=== PATIENT | male | born 1950 | race Caucasian/White ===

== ENCOUNTER 2022-02-15 12:15 | Inpatient (IN) | payer OTHER ==
[~2022-02-15] VITALS: Ht 188 cm; Wt 113.4 kg
[2022-02-15 12:30] LABS: Calcium, Ionized (POC) 1.07 mmol/L (1.10-1.46); Chloride (POC) 103 mmol/L (98-108); Creatinine (POC) 1.1 mg/dL (0.8-1.3); Glucose (ISTAT POC) 173 mg/dL (70-99); Hemoglobin (POC) 16.7 g/dL (13.5-17.5); Potassium (POC) 3.5 mmol/L (3.5-5.5); Sodium (POC) 140 mmol/L (135-148); Total CO2 (POC) 20 mmol/L (21-32)
[2022-02-15 12:38] LABS: BASOPHILS ABSOLUTE AUTO 0.07 K/mm3 (0.00-0.23); BASOPHILS PERCENT AUTO 1 % (0-2); EOSINOPHILS ABSOLUTE AUTO 0.04 K/mm3 (0.00-0.68); EOSINOPHILS PERCENT AUTO 0 % (0-6); Hematocrit 47.6 % (37.0-53.0); Hemoglobin 15.7 g/dL (13.5-17.5); IMMATURE GRAN ABSOLUTE AUTO 0.07 K/mm3 (0.00-0.10); IMMATURE GRAN PERCENT AUTO 1 % (0-1); LYMPHOCYTES ABSOLUTE AUTO 2.79 K/mm3 (0.84-5.20); LYMPHOCYTES PERCENT AUTO 21 % (21-46); MONOCYTES ABSOLUTE AUTO 0.87 K/mm3 (0.16-1.47); MONOCYTES PERCENT AUTO 7 % (4-13); Mean Corpuscular HGB 29.3 pg (26.0-34.0); Mean Corpuscular Volume 89 fL (80-100); Mean Platelet Volume 10.2 fL (9.1-12.4); NEUTROPHILS PERCENT AUTO 71 % (41-73); Platelet Count 326 K/mm3 (150-400); RDW Coefficient Variation 13.3 % (11.7-14.2); RDW Standard Deviation 43.8 fL (35.1-46.3); Red Blood Cell Count 5.36 M/mm3 (4.30-5.90); White Blood Cell Count 13.44 K/mm3 (4.00-11.30)
[2022-02-15 12:57] LABS: International Normalized Ratio 1.08; Prothrombin Time Results 11.3 Sec (9.7-11.5)
[2022-02-15 13:00] LABS: Albumin, Blood 4.3 g/dL (3.4-5.0); Albumin/Globulin Ratio 1.1 (0.8-1.8); Bilirubin, Total 0.6 mg/dL (0.1-1.0); Bun/Creatinine Ratio 23.4 (12.0-20.0); Calcium, Blood 9.6 mg/dL (8.5-10.1); Creatinine, Blood 1.11 mg/dL (0.60-1.20); Globulin, Blood 3.8 g/dL (2.2-4.0); Potassium, Blood 3.6 mmol/L (3.5-5.5); Total Protein, Blood 8.1 g/dL (6.4-8.2)
--- NOTE | 2022-02-15 14:54 | NUR ---
RECEIVED PT FROM BELT OPERATOR @ 1409-S/P STEMI, INFERIOR CO, THROMBECTOMY AND STENT TO RCA. PT ON IABP 1:1 MODE. P A&O X 4-VERY [place]. PT LIFTS HIS HEAD OFF OF THE PILLOW TO TRY TO HEAR STAFF. PT REMINDED VERY FREQUENTLY TO KEEP HIS HEAD DOWN AND RIGHT LEG STRAIGHT, BUT PT FORGETFUL. RIGHT LEG WITH SHEET OVER THE RIGHT KNEE TO KEEP PT FROM MOVING HIS RIGHT LEG. ECG SHOWS AFIB WITH VENTRICULAR ECTOPY. 12 LEAD ECG DONE AND REVIEWED WITH . PT DENIES CP OR SOB. CXR DONE TO CONFIRM IABP PLACEMENT.SATS>90% ON RA. NPO NO NAUSEA AT THIS TIME. RIGHT FEMORAL SITE WITH SCANT AMOUNT OF OOZING TO SITE. DP/PT PULSES STRONG BILATERALLY. PT DENIES NUMBNESS OR TINGLING. #18 FR BARNETT INSERTED AND U/A TO BE SENT PER BARNETT INSERTION PROTOCOL. HEPARIN DRIP INFUSING @ 20 ML/HR-PHARMACY UPDATED TO PT WEIGHT-PHARMACY TO ADJUST HEPARIN DRIP. DR. DONNELLY UPDATED PT THAT HE NEEDS TO BE TRANSFERED TO HIGH LEVEL OF [facility] FOR HIGH RISK PCI OR POSSIBLE CABG-CURRENTLY, THERE ARE NO BEDS AVAILABLE.
[2022-02-15 14:57] LABS: Source, Urine Foley catheter
[2022-02-15 15:01] LABS: Appearance, Urine Turbid (Clear); Bilirubin, Urine Neg (Neg); Blood, Urine 5+ (Neg); Color, Urine Amber (P-Yellow); Glucose Qualitative, Urine Neg (Neg); Ketones, Urine 3+ (Neg); Leukocyte Esterase, Urine Neg (Neg); Nitrite, Urine Neg (Neg); Protein, Urine 2+ (Neg); Specific Gravity, Urine 1.015 (1.003-1.022); Urobilinogen, Urine NORM (Normal)
[2022-02-15 15:13] LABS: Red Blood Cells, Urine TNTC /hpf (0-2); Squamous Epithelial Cells Rare /hpf (Few)
[2022-02-15 15:14] LABS: Bacteria Few /hpf; Hyaline Casts 0-2 /lpf (0-2); Mucus Light (0-Heavy)
--- NOTE | 2022-02-15 15:40 | NUR ---
INITIALLY AFTER BARNETT INSERTION, URINE CLEAR, YELLOW. HEMATURIA NOW NOTED. ATTEMPTED TO NOTIFY DR. DONNELLY-VOICEMAIL LEFT.
[2022-02-15] MEDS ORDERED: HYDCHL12.5 PO (15:46)
[2022-02-15] MEDS ORDERED: LOSA25 PO (15:46)
--- NOTE | 2022-02-15 15:56 | NUR ---
DR. DONNELLY NOTIFIED OF THAT PT HAD REPROFUSION ARRHYTHMIA, HEMATURIA, AND THAT PT APPEARS ANXIOUS. ORDERS GIVEN.
--- NOTE | 2022-02-15 16:46 | NUR ---
PT RESTING QUIETLY AT THIS TIME. ECG CONTINUES AFIB WITH RATE 60-70'S. RIGHT FEMORAL SITE WITH SMALL AMOUNT OF OOZING, BUT SITE REMAINS SOFT, NONTENDER, AND NO HEMATOMA. IABP ON AUTO AND 1:1 MODE AND ADEQUATE TIMING AND AUGMENTATION.
--- NOTE | 2022-02-15 18:11 | NUR ---
PT CONTINUES TO REST QUIETLY. RIGHT FEMORAL IABP SITE WITH SMALL AMOUNT OF OOZING TO DRESSING. RIGHT FEMORAL SITE SOFT, NO HEMATOMA-DP/PT PULSES 2+. IABP CONTINUES ON AUTO AND 1:1 MODE. PT DENIES CHEST PAIN OR SOB AND SLEEPS WHEN NOT DISTURBED. [facility] HAS ACCEPTED PT. AWAITING ACUTAL BED PLACEMENT AND THEN WILL GIVE REPORT AND CONTACT TRANSPORT.
--- NOTE | 2022-02-15 19:00 | NUR ---
ASSUMED CARE ASSUMED CARE OF PATIENT. AWAKE AND ALERT. FAMILY AT BEDSIDE. DENIES C/O PAIN OR DISCOMFORT. MONITOR SHOWS AFIB, RATE 70s-80s. BP STABLE. RA SATS STABLE. RESPIRATIONS EVEN AND UNLABORED. IABP TO RIGHT FEMORAL- 1:1 MODE. AUGMENTED PRESSURES 130s. RIGHT GROIN SITE WITH SMALL AMOUNT OF BLEEDING AT INSERTION SITE. SITE IS SOFT, NO HEMATOMA NOTED DP/PT PULSES INTACT BILATERALLY. PT C/O MILD NUMBNESS/TINGLING, BUT STATES THAT IT FEELS LIKE HIS NORMAL NEUROPATHY. BARNETT PATENT- HEMARUTIA NOTED. HEPARIN GTT INFUSING AT 15UNITS/KG/HR. NS AT 100CC/HR. SEE SHIFT ASSESSMENT FOR FULL ASSESSMENT.
[2022-02-15] MEDS ORDERED: PHARBEDRYL PO (20:38)
[2022-02-15] MEDS ORDERED: MELATONIN5 M1 PO (20:41)
--- NOTE | 2022-02-15 20:45 | NUR ---
CALL TO MD DR. DONNELLY NOTIFIED OF PT STAYING IN THIS HOSPITAL UNTIL AM D/T UNAVAILABLE STAFF AT TRANSFER HOSPITAL. ALSO NOTIFIED OF HEMARUTIA AFTER CATHETER PLACEMENT. NEW ORDERS RECEIVED FOR INSOMNIA WELL.
--- NOTE | 2022-02-15 22:59 | NUR ---
BARNETT/HEMATURIA DECREASED URINE OUTPUT AND CONTINUED HEMATURIA NOTED- BARNETT FLUSHED AT THIS TIME. NO CLOTS NOTED.
--- NOTE | 2022-02-15 23:32 | NUR ---
DECREASED URINE OUTPUT/CALL TO MD DR. DONNELLY NOTIFIED OF CONTINUED DECREASE IN URINE OUTPUT WITH LAST HOUR BEING ONLY 40CC. WHEN ASKED AT WHAT POINT HE WOULD LIKE TO BE NOTIFIED OF URINE OUTPUT, STATES THAT HE IS NOT CONCERNED WITH URINE OUTPUT T/O THE NIGHT.
[2022-02-16 03:13] LABS: Hematocrit 42.7 % (37.0-53.0); Hemoglobin 14.1 g/dL (13.5-17.5); Mean Corpuscular HGB 29.2 pg (26.0-34.0); Mean Corpuscular Volume 88 fL (80-100); Platelet Count 231 K/mm3 (150-400); RDW Coefficient Variation 13.5 % (11.7-14.2); RDW Standard Deviation 43.8 fL (35.1-46.3); Red Blood Cell Count 4.83 M/mm3 (4.30-5.90); White Blood Cell Count 9.32 K/mm3 (4.00-11.30)
[2022-02-16 03:32] LABS: Anion Gap 8 mmol/L (6-16); Blood Urea Nitrogen 20 mg/dL (8-24); Bun/Creatinine Ratio 22.1 (12.0-20.0); CHOL/HDL RATIO 4.1; CO2, Blood 26 mmol/L (21-32); Calcium, Blood 8.6 mg/dL (8.5-10.1); Chloride, Blood 108 mmol/L (98-108); Cholesterol 184 mg/dL (50-200); Glomerular Filtration Rate 91 (60-); Glucose, Blood 99 mg/dL (70-99); HDL Cholesterol 45 mg/dL (>39); LDL/HDL RATIO 2.5; Low Density Lipoprotein Chol 115 mg/dL (0-110); Potassium, Blood 3.7 mmol/L (3.5-5.5); Sodium, Blood 142 mmol/L (136-145); Triglycerides 122 mg/dL (30-160); Very Low Density Lipoprot Chol 24 mg/dL (6-32)
--- NOTE | 2022-02-16 06:55 | NUR ---
TRANSFER REACH HERE AT APPROXIMATELY 0615 TO TRANSFER PATIENT. IABP REMAINS IN PLACE- 1:1. RIGHT GROIN SITE STABLE- OLD BLOOD NOTED ON DRESSING. NO NEW BLEEDING. SITE IS SOFT AND WITHOUT HEMATOMA. REMAINS IN AFIB, RATE 60s-90s. AFEBRILE. RA SATS STABLE. RESPIRATIONS EVEN AND UNLABORED. DENIES C/O PAIN OR NAUSEA AT THIS TIME. HEPARIN CONTINUES AT 15UNITS/KG/HR. NS AT 100CC/HR. BARNETT PATENT AND DRAINING TO GRAVITY. LESS HEMATURIA NOTED- URINE APPEARS DARK REJI. REPORT GIVEN TO HUDSON AGUSTIN AT [facility] AT 0650.
== END 2022-02-16 06:50 | disposition short-term general hospital (02) | DRG 272 ==
LOC: ER 12:15 → ICUW 12:26 → ICUE 13:46
PROVIDERS: Emergency Medicine; ADMIT Internal Medicine Cardiovascular Disease
PROC: 5A02210 Assistance with Cardiac Output using Balloon Pump, Continuous (ICD-10-PCS; principal; 2022-02-15)
PROC: 027034Z Dilation of Coronary Artery, One Artery with Drug-eluting Intraluminal Device, Percutaneous Approach (ICD-10-PCS; 2022-02-15)
PROC: 4A023N7 Measurement of Cardiac Sampling and Pressure, Left Heart, Percutaneous Approach (ICD-10-PCS; 2022-02-15)
PROC: B2111ZZ Fluoroscopy of Multiple Coronary Arteries using Low Osmolar Contrast (ICD-10-PCS; 2022-02-15)
PROC: B2151ZZ Fluoroscopy of Left Heart using Low Osmolar Contrast (ICD-10-PCS; 2022-02-15)
PROC: 02C03ZZ Extirpation of Matter from Coronary Artery, One Artery, Percutaneous Approach (ICD-10-PCS; 2022-02-15)
DX: I21.11 ST elevation (STEMI) myocardial infarction involving right coronary artery (principal); I25.10 Atherosclerotic heart disease of native coronary artery without angina pectoris; I48.91 Unspecified atrial fibrillation; I10 Essential (primary) hypertension; E78.5 Hyperlipidemia, unspecified; F17.200 Nicotine dependence, unspecified, uncomplicated; Z88.8 Allergy status to other drugs, medicaments and biological substances; Z71.6 Tobacco abuse counseling; Z79.899 Other long term (current) drug therapy
CPT/HCPCS: 33967; 36415; 51702; 71045; 80047; 80048; 80053; 80061; 81001; 84484; 85014; 85025; 85027; 85347; 85520; 85610; 85730; 92924; 93005; 93010; 93458; 99152; 99153; 99285-25; A9270; C1725; C1757; C1769; C1874; C1887; C1894; C9606; J0461; J1644; J2060; J2250; J3010; J7030; J7040; Q9967

== ENCOUNTER → 2022-03-11 | Outpatient (CLI) | payer OTHER ==
[~2022-03-11] MED LIST: HYDCHL12.5 PO; LOSA25 PO; MELATONIN5 M1 PO; PHARBEDRYL PO
== END | disposition home or self-care (01) ==
LOC: LAB SHORT 08:45 → LAB 08:45
DX: Z08 Encounter for follow-up examination after completed treatment for malignant neoplasm (principal); L30.9 Dermatitis, unspecified; L08.9 Local infection of the skin and subcutaneous tissue, unspecified; Z85.820 Personal history of malignant melanoma of skin
CPT/HCPCS: 87070; 87205

== ENCOUNTER 2023-11-10 07:06 | Day surgery (SDC) | payer OTHER ==
[~2023-11-10] VITALS: Ht 190.5 cm; Wt 113.4 kg
[2023-11-10] VITALS (10 sets, daily range): BP systolic 98–175; BP diastolic 79–115
[~2023-11-10 07:06] MED LIST changes: +Acetaminophen 500 MG Tab PO SCH; +Chlorhexidine Mouth Care 15 ML UDC MT SCH; +DEPO-TESTO200 MG/1 M; +ELIQUIS5 M2 PO; +Lactated Ringer's 1,000 ML IV SCH; +OxyCODONE HCL 10 MG TABCR PO SCH; +PHOSPHOROUS 25250 MG; +QUET25 PO; +Ropivacaine 0.5% HCl/Pf 67.75 MG,EPINEPHrine HCL 0.25 MG,Ketorolac Tromethamine 15 MG,C... INFIL SCH; +TAMS.4ER PO; +TESTOSTERONE PO; +TURMERIC500 M2 PO; +ZINC PICOLINATE PO
[2023-11-10] MEDS ORDERED: TADA10TA PO (07:21)
[2023-11-10] MEDS ORDERED: CeFAZolin Sodium 2,000 MG in NS 50 ML IV SCH ×2 (07:35→16:45)
--- NOTE | 2023-11-10 08:01 | NUR ---
Ambulatory in Day Surgery Surgical site prepped with 2% Chlorhexidine cloth wipe. History, Chart, Medications and Allergies reviewed before start of procedure.Lungs clear T/O to Auscultation. Patient confirms NPO status and agrees with scheduled surgery. Pre-Op teaching done. Pt verbalizes understanding.
[2023-11-10] MEDS ORDERED: propofoL 40 ML IV ONE (08:05)
[2023-11-10] MEDS ORDERED: FentaNYL Citrate 50 MCG/ML 2 ML Injection ONE (08:05)
[2023-11-10] MEDS ORDERED: ePHEDrine Sulfate 50 MG/ML 1ML Injection ONE (09:32)
[2023-11-10] MEDS ORDERED: OxyCODONE HCL 5 MG TAB PO PRN ×2 (09:35)
[2023-11-10] MEDS ORDERED: Metoclopramide HCl 5MG / ML 2ML Vial IV PRN (09:35)
[2023-11-10] MEDS ORDERED: Promethazine HCl 25 MG Tab PO PRN (09:35)
[2023-11-10] MEDS ORDERED: Ondansetron HCl 2 MG / ML 2ML Vial IV PRN (09:35)
--- NOTE | 2023-11-10 09:37 | NUR ---
11/10/23 0937 Paradise Alatorre SPINAL NERVE BLOCK COMPLETED BY DR. SORIANO UPON ENTRY TO OR. PT TOLERATED WELL.
[2023-11-10] MEDS ORDERED: Lactated Ringer's 1,000 ML IV SCH (09:40)
[2023-11-10] MEDS ORDERED: HYDROmorphone HCl/Pf 1MG SYR IV PRN (09:40)
[2023-11-10] MEDS ORDERED: FLU VACC QS2023-24(6MOS UP)/PF 60 MCG/0.5 ML SYRINGE IM SCH (09:40)
[2023-11-10] MEDS ORDERED: DiphenhydrAMINE HCL 25 MG Cap PO PRN (09:40)
[2023-11-10] MEDS ORDERED: Magnesium Hydroxide Conc 10 ML UDC PO PRN (09:40)
[2023-11-10] MEDS ORDERED: Bisacodyl 10 MG Supp PR PRN (10:20)
[2023-11-10] MEDS ORDERED: Ondansetron HCl 2 MG / ML 2ML Vial ONE (10:30)
[2023-11-10] MEDS ORDERED: Metoclopramide HCl 5MG / ML 2ML Vial ONE (10:30)
[2023-11-10] MEDS ORDERED: Ketorolac Tromethamine 15mg Vial IV SCH (12:00)
[2023-11-10] MEDS ORDERED: ASPI81CH PO (15:08)
[2023-11-10] MEDS ORDERED: Percocet 5-3251 EACH PO (15:08)
[2023-11-10] MEDS ORDERED: Acetaminophen 500 MG Tab PO SCH (16:00)
--- NOTE | 2023-11-10 16:21 | NUR ---
DISCHARGE NAUSEA HAS RESOLVED. TAKING IN FLUIDS & SNACKS WELL. VOIDED POST OP. DR CARTAGENA INTO SEE PT. SCRIPT TO SPOUSE. ESCORTED OUT VIA WC.
--- NOTE | 2023-11-10 16:23 | NUR ---
DISCHARGE WORKED w/ THERAPY. PAIN WELL CONTROLLED. EATING, DRINKING, & VOIDED. SCRIPT, POLAR PACK, & DRSGS GIVEN. FEELS COMFORTABLE w/ DC. ESCORTED OUT VIA WC.
[2023-11-10] MEDS ORDERED: QUEtiapine Fumarate 25 MG Tab PO SCH (21:00)
[2023-11-10] MEDS ORDERED: Docusate Sodium 100 MG Cap PO SCH (21:00)
[2023-11-11] MEDS ORDERED: Aspirin 81 MG Chew PO SCH (09:00)
[2023-11-11] MEDS ORDERED: Tamsulosin HCl 0.4 MG Cap PO SCH (09:00)
== END 2023-11-10 16:21 | disposition home or self-care (01) ==
LOC: ORSCMMR 07:06 → ORD 08:15 → ORSCMMR 08:15 → SURS 11:38 → ORSCMMR 16:21
PROVIDERS: Orthopaedic Surgery
PROC: 0SPD04Z Removal of Internal Fixation Device from Left Knee Joint, Open Approach (ICD-10-PCS; principal; 2023-11-10 08:15)
PROC: 0SRD0JA Replacement of Left Knee Joint with Synthetic Substitute, Uncemented, Open Approach (ICD-10-PCS; principal; 2023-11-10 08:15)
DX: M16.12 Unilateral primary osteoarthritis, left hip (principal); T84.84XA Pain due to internal orthopedic prosthetic devices, implants and grafts, initial encounter; I48.91 Unspecified atrial fibrillation; Z79.01 Long term (current) use of anticoagulants; I25.2 Old myocardial infarction; Z79.899 Other long term (current) drug therapy
CPT/HCPCS: 73560-LT; 97110; 97116; 97162; A9270; C1713; C1776; J0171; J0690; J0735; J1885; J2405; J2704; J2765; J2795; J3010; J7120